=== PATIENT | male | born 1970 | race Caucasian/White ===

== ENCOUNTER 2018-10-27 17:46 | Emergency (ER) | payer OTHER ==
[2018-10-27] MEDS ORDERED: diphenhydrAMINE 50 MG/ML VIAL ONE (17:53)
[2018-10-27] MEDS ORDERED: methylPREDNISolone Sod Succ/PF 125 MG/2 ML VIAL ONE (17:53)
[2018-10-27] MEDS ORDERED: EPINEPHrine 1 MG/ML AMP ONE (17:53)
[2018-10-27] MEDS ORDERED: Famotidine/PF 20 mg/2ml Vial ONE (18:16)
== END 2018-10-27 20:40 | disposition home or self-care (01) ==
LOC: ERS 17:46
DX: T78.3XXA Angioneurotic edema, initial encounter (principal); I10 Essential (primary) hypertension; F17.210 Nicotine dependence, cigarettes, uncomplicated; Z79.899 Other long term (current) drug therapy
CPT/HCPCS: 96372; 96374; 96375; J0171; J1200; J2930; S0028